=== PATIENT | female | born 1955 | race Caucasian/White ===

== ENCOUNTER 2023-09-17 02:07 | Day surgery (SDC) | payer MEDICARE, SELFPAY ==
--- NOTE | 2023-09-16 09:57 | PC.NURSE ---
Report to the Outpatient Waiting Room, entrance under the green pavilion located off [facility], at time _0800 on date __09/17/23 . Planned Procedure Time: ___1000 . Time changes happen often and if your time is changed the preop area will call you the afternoon before. - You and your visitor will be asked to self-screen and do not enter if you have any COVID symptoms. - A mask is optional within the hospital at this time. Patients may have clear liquids (water, carbonated beverages, clear teas, apple juice) until 3 hours prior to surgery(7:00AM) with a maximum of 20 ounces. - No food from midnight until time of surgery - Infants may have breast milk until 4 hours before surgery, formula 6 hours prior to surgery. - Children will be allowed to drink immediately following surgery. If applicable, please bring a bottle or sippy cup to assist with drinking. Juice, water, soda, and popsicles are readily available. For infants on formula, please bring formula the day of surgery. Pacifiers are allowed. Take the following medications with a SIP of water the morning of surgery: _METOPROLOL DO NOT STOP ANY OF YOUR OTHER PRESCRIPTION MEDICATIONS PRIOR TO SURGERY ?EXCEPT THE FOLLOWING Medications to discontinue per physician NONE Please no make-up, nail malay, hairspray, perfume, deodorant, or body powder the day of surgery. No jewelry (including any body piercings) or valuables the day of surgery, leave them at home. Please take a shower or bath the night before, or the morning of, surgery with an antibacterial soap. Wear comfortable, loose fitting clothing. Children are encouraged to wear pajamas. - Jewelry must be removed prior to entering the operating room. Rings and piercings that are not removed may be cut off. - The hospital will not accept responsibility for valuables. - Please leave all valuables, including medications, at home the day of surgery. If you are going home after surgery, a licensed shuttle van driver must drive you home. - NO public transportation without another adult if you receive anesthesia. - We recommend that an adult stay with you for 24 hours following discharge. - We also recommend that you do not drive, make important decision, drink alcoholic beverages, or take any drugs that were not prescribed by your health care provider for at least 24 hours after your discharge time Follow any additional instructions given to you from your surgeon. If you or anyone in your household have experienced Covid symptoms in the past week, please notify your surgeon or the nurse liaison at the phone number below for possible testing. Telephone instructions given to ___PATIENT and asked if any additional questions and then verbalized understanding. Patient advised to call surgeon office or pre surgery nurse liaison [phone] if any additional questions.
[2023-09-16 10:20] VITALS: BMI 28.8
[2023-09-17] VITALS (8 sets, daily range): BP systolic 118–128; BP diastolic 51–67; PULSE 66–78; RESP 14–21; TEMP 36.1–36.8; O2SAT 93–100
[2023-09-17 08:36] LABS: Glucose Point of Care 119 mg/dl (65-105)
[2023-09-17] MEDS: LACTATED RINGERS 1,000 ML 30 ML IV CONT (09:00)
--- NOTE | 2023-09-17 09:35 | WPDANESEPPF ---
Anes - Initial Pre Proc Eval Procedure: Operation Date: 09/17/23 10:00 Proposed Procedures p Cystoscopy, Bladder Biopsy with Fulguration - Lefty Godoy MD Date/Time: 09/17/23 09:35 Surgeon: Lefty Godoy MD Pre Op Diagnosis: bladder cancer, gross hematuria Patient Data Age: 68 Gender: F Height: 1.6 m Weight: 69.6 kg Last Vital Signs Temp 36.1 C L 09/17/23 09:00 Pulse 66 09/17/23 09:00 Resp 14 09/17/23 09:00 BP 119/51 L 09/17/23 09:00 Pulse Ox 100 09/17/23 09:00 O2 Del Method Room Air 09/17/23 09:00 Allergies Allergy/AdvReac Type Severity Reaction Status Date / Time amoxicillin [From Augmentin] AdvReac Other Verified 09/17/23 09:28 clavulanic acid AdvReac Other Verified 09/17/23 09:28 [From Augmentin] morphine AdvReac Hives Verified 09/17/23 09:28 Home Medications Medication Instructions Recorded Confirmed Type albuterol sulfate 90 mcg/actuation 2 puff inhalation PRN PRN 09/16/23 09/16/23 History aerosol inhaler Shortness Of Breath furosemide 20 mg tablet 20 mg PO PRN PRN SWELLING 09/16/23 09/16/23 History glipizide 5 mg tablet 5 mg PO DAILY 09/16/23 09/16/23 History lisinopril 10 mg tablet 10 mg PO BID 09/16/23 09/16/23 History metformin 1,000 mg tablet 1,000 mg PO BID 09/16/23 09/16/23 History metoprolol tartrate 25 mg tablet 25 mg PO BID 09/16/23 09/17/23 History rosuvastatin 40 mg tablet 40 mg PO 3XW 09/16/23 09/16/23 History Laboratory Tests 09/17/23 08:33 POC Capillary Glucose 119 H mg/dl (65-105) Patient hx anesthesia problems: none Family hx anesthesia problems: none Results Review: All pre-operative results and documents have been reviewed as part of the pre-operative evaluation. [facility] Past Medical History Medical History (Updated 09/17/23 @ 09:35 by Sarath Olguin MD) CAD (coronary artery disease) Diabetes HTN (hypertension) LUIS on CPAP Surgical History Surgical History Stented coronary artery Social History Social History Smoking packs per day: 1 Smoking cigarettes per day: 20.0 Years smoked: 35 Smoking pack-years: 35.00 Smoking status: Current every day smoker Tobacco type: cigarettes Alcohol intake: current Drinks per week: 1 Substance use: current Substance use type: marijuana Last use: JULY 2023 Living arrangements: with family Spiritual care concerns: No Anes - Eval Final PreProcedure Day of Procedure 09/17/23 09:35 Patient weight: overweight Heart: regular rate and rhythm Lungs: clear to auscultation Airway: Mallampati scale class 1 Neurological: alert and oriented Last oral intake: >/= 8 hours ASA classification: III Emergent: no Anesthetic plan: proceed Anesthesia type and monitoring: general LMA and standard monitoring Results Review: All pre-operative results and documents have been reviewed as part of the pre-operative evaluation. Informed Consent: The patient's anesthetic plan and its attendant risks and benefits were discussed with the patient/family/POA. Questions were solicited and answers provided to the satisfaction of the patient/family/POA.
--- NOTE | 2023-09-17 10:32 | WPDHPUPDATE1 ---
History and Physical Update Update Date/Time: 09/17/23 10:32 History and Physical has been reviewed, including an updated exam of the patient. There are NO changes in the patient's condition. Risks, benefits, and alternatives have been discussed and questions answered. Patient agrees to proceed with procedure. Proceed with cysto, bladder biopsy with fulguration
[2023-09-17] MEDS: ceFAZolin 2 GM/D5W 50 ML 2 GM/50 ML BAG IVPB (11:01)
[2023-09-17] MEDS: LIDOCAINE HCL 2% GEL UROJET 10 ML PKG MUCOUS MEM (11:03)
--- NOTE | 2023-09-17 11:19 | P.OP_ITS ---
Procedure Note - Detailed Date of Procedure 09/17/23 Pre-op Diagnosis Bladder lesion Post-op Diagnosis Same Procedure Performed Cysto with bladder biopsy and fulguration Surgeon Lefty Godoy MD Anesthesia General Findings 3 erythematous areas on the floor of the bladder Description of Procedure Patient was taken to the operative suite correctly identified. Once anesthesia was obtained she was placed in dorsal lithotomy position and prepped and draped usual sterile fashion. Twenty-two Ukrainian scope inserted in the bladder. There was 3 erythematous areas along the posterior floor wall the bladder. Using cold cup biopsy these were biopsied and sent for analysis. The bases of these were then fulgurated with a Bugbee. There was good hemostasis. Bladder was drained. 2% viscous lidocaine was inserted into the urethra patient is taken recovery stable condition. She will call for path results in 1 week time. This completes dictation please send a copy of op note to my office Estimated Blood Loss 0 Drains No Packing No Pathology Yes Complications No immediate complications Condition Stable Disposition PACU
[2023-09-17 12:02] LABS: Glucose Point of Care 106 mg/dl (65-105)
== END 2023-09-17 13:01 | disposition home or self-care (01) ==
PROVIDERS: PCP Family Medicine; Visit Provider Urology
PROC: 0TBB8ZX Excision of Bladder, Via Natural or Artificial Opening Endoscopic, Diagnostic (ICD-10-PCS; CPT 52204; principal; 2023-09-17 10:00)
DX: N30.20 Other chronic cystitis without hematuria (principal); I25.10 Atherosclerotic heart disease of native coronary artery without angina pectoris; I10 Essential (primary) hypertension; E11.9 Type 2 diabetes mellitus without complications; G47.33 Obstructive sleep apnea (adult) (pediatric); F17.210 Nicotine dependence, cigarettes, uncomplicated; F12.90 Cannabis use, unspecified, uncomplicated; Z79.51 Long term (current) use of inhaled steroids; Z79.84 Long term (current) use of oral hypoglycemic drugs
CPT/HCPCS: 52204; 82948; 88305; J0690; J1100; J2405; J2704; J3010; J7120